=== PATIENT | male | born 1985 | race African-American/Black ===

== ENCOUNTER 2019-01-24 08:18 | Emergency (ER) | payer OTHER, MEDICAID ==
[~2019-01-24] VITALS: Ht 172.7 cm; Wt 90.0 kg
[2019-01-24] MEDS ORDERED: KETOROLAC 30MG/ML VIAL IM ONE (09:15)
[2019-01-24 11:00] VITALS: BP 131/85
== END 2019-01-24 11:25 | disposition home or self-care (01) ==
LOC: ER 08:18
DX: M25.532 Pain in left wrist (principal); J45.909 Unspecified asthma, uncomplicated; Z91.018 Allergy to other foods; W01.0XXA Fall on same level from slipping, tripping and stumbling without subsequent striking against object, initial encounter; Y93.67 Activity, basketball; Y92.89 Other specified places as the place of occurrence of the external cause
CPT/HCPCS: 29125; 73110; 96372; 99283; J1885